=== PATIENT | male | born 1970 | race Caucasian/White ===

== ENCOUNTER 2024-11-11 15:37 | Emergency (ER) | payer SELFPAY ==
[2024-11-11] MEDS ORDERED: FLUORESCEIN SODIUM 1 MG/WRAP ONE (15:46)
[2024-11-11] MEDS ORDERED: TETRACAINE HCL 0.5% 4ML OPTH ONE (15:46)
--- NOTE | 2024-11-11 15:57 | EDPHYS ---
Physician Documentation [facility] Name: Laura Matias Age: 54 yrs Sex: Male : 1970 Arrival Date: 11/11/2024 Time: 15:37 Bed 13 Private MD: ED Physician Deangelo Spangler HPI: 11/11 15:45 This 54 yrs old Male presents to ER via Unassigned with complaints of Eye Problem. kb 15:45 Pt is a 54 year old male who presents for FB sensation to left eye. States he felt like kb he got something in his left eye yesterday morning while grooming his dog. Denies any visual deficits. Historical: - Allergies: 15:45 No Known Allergies; aa5 - PMHx: 15:45 cva; aa5 - Immunization history:: Adult Immunizations unknown. - Infectious Disease History:: Denies. - Social history:: Smoking status: Patient denies any tobacco usage or history of. ROS: 15:44 Constitutional: As per HPI kb Exam: 15:44 Constitutional: This is a well developed, well nourished patient who is awake, alert, kb and in no acute distress. Head/Face: Normocephalic, atraumatic. ENT: Moist Mucous membranes Cardiovascular: Regular rate Respiratory: Respirations even and unlabored. No increased work of breathing. Talking in full sentences Skin: Warm, dry with normal turgor. Normal color. MS/ Extremity: Pulses equal, no cyanosis. Neurovascular intact. Full, normal range of motion. Neuro: Awake and alert, GCS 15, oriented to person, place, time, and situation. 15:44 Eyes: Periorbital structures: appear normal, Pupils: equal, round, and reactive to light and accomodation, Extraocular movements: intact throughout, 15:55 Eyes: Conjunctiva: injected, in the left eye, Corneas: abrasion, is not appreciated, kb foreign body, is not appreciated, Vital Signs: 15:40 BP 163 / 92; Pulse 96; Resp 18 S; Temp 97.2(TE); Pulse Ox 99% on R/A; Weight 79.38 kg aa5 (R); Height 5 ft. 9 in. (R); Pain 8/10; 15:40 Body Mass Index 25.84 (79.38 kg, 175.26 cm) aa5 15:40 Pain Scale: Adult aa5 MDM: 15:40 Medical Screening Exam initiated kb 15:45 Differential diagnosis: Corneal abrasion of Corneal ulcer of Foreign body in Acute kb iritis of Data reviewed: vital signs, nurses notes. 15:56 Counseling: I had a detailed discussion with the patient and/or guardian regarding the kb historical points, exam findings, and any diagnostic results supporting the discharge/admit diagnosis, the need for outpatient follow up, an opthalmologist, to return to the emergency department if symptoms worsen or persist or if there are any questions or concerns that arise at home. Special discussion: I have referred the patient to see his PCP for further evaluation of high blood pressure. 11/11 15:44 Order name: Eye Tray; Complete Time: 15:49 kb 11/11 15:44 Order name: Fluoresene Opth strip; Complete Time: 15:49 kb Administered Medications: 16:06 Drug: Tetracaine Ophthalmic Drops 0.5 % 1 drops Ophthalmic once Route: Ophthalmic; kc6 Site: left eye; Disposition: 18:39 Co-signature as Attending Physician, Deangeol Spangler MD I reviewed the patient's care rn provided by the Advanced Practice Provider and agree with the diagnosis and treatment plan. Disposition Summary: 11/11/24 15:56 Discharge Ordered Notes: Location: Home kb Condition: Stable kb Diagnosis - Unspecified acute conjunctivitis, left eye kb Followup: kb - With: Emergency Department - When: As needed - Reason: Worsening of condition Followup: kb - With: Private Physician - When: 2 - 3 days - Reason: Recheck today's complaints, Continuance of care, Re-evaluation by your physician Discharge Instructions: - Discharge Summary Sheet kb - Bacterial Conjunctivitis, Adult, [id number] kb Forms: - Medication Reconciliation Form kb - Antibiotic Education kb - Prescription Opioid Use kb - Patient Portal Instructions kb - Leadership Thank You Letter kb Prescriptions: - Vigamox 0.5 % Ophthalmic Drops - instill 1 drop OPHTHALMIC route every 8 hours for 7 days; 5 milliliter; kb Refills: 0, Product Selection Permitted Signatures: Krystyna Franz FNP-C FNP-Ckb Nieto, Roman, MD MD rn Calderon, Audri RN RN aa5 Bekah Corbin RN RN kc6
--- NOTE | 2024-11-11 15:57 | ER ---
Nurse's Notes [facility] Name: Laura Matias Age: 54 yrs Sex: Male : 1970 Arrival Date: 11/11/2024 Time: 15:37 Bed 13 Private MD: Diagnosis: Unspecified acute conjunctivitis, left eye Presentation: 11/11 15:40 Chief complaint: Patient states: "I feel something in my left eye", watering and pain aa5 to left eye that began yesterday. 15:40 Coronavirus screen: At this time, the client does not indicate any symptoms associated aa5 with coronavirus-19. Ebola Screen: Patient denies travel to an Ebola-affected area in the 21 days before illness onset. Initial Sepsis Screen: Does the patient meet any 2 criteria? HR > 90 bpm. Does the patient have a suspected source of infection? No. Patient's initial sepsis screen is negative. Risk Assessment: Do you want to hurt yourself or someone else? Patient reports no desire to harm self or others. Onset of symptoms was November 2024. 15:40 Acuity: ANA 4 aa5 15:40 Method Of Arrival: Ambulatory aa5 Historical: - Allergies: 15:45 No Known Allergies; aa5 - PMHx: 15:45 cva; aa5 - Immunization history:: Adult Immunizations unknown. - Infectious Disease History:: Denies. - Social history:: Smoking status: Patient denies any tobacco usage or history of. Screenin:06 [facility] ED Fall Risk Assessment (Adult) History of falling in the last 3 months, kc6 including since admission No falls in past 3 months (0 pts) Confusion or Disorientation No (0 pts) Intoxicated or Sedated No (0 pts) Impaired Gait No (0 pts) Mobility Assist Device Used No (0 pt) Altered Elimination No (0 pt) Score/Fall Risk Level 0 - 2 = Low Risk Oriented to surroundings. Abuse screen: Denies threats or abuse. Denies injuries from another. Nutritional screening: No deficits noted. Tuberculosis screening: No symptoms or risk factors identified. Assessment: 16:08 General: Appears in no apparent distress. uncomfortable, Behavior is calm, cooperative, kc6 appropriate for age. Pain: Complains of pain in left eye. Neuro: Level of Consciousness is awake, alert, obeys commands, Oriented to person, place, time, situation, Appropriate for age. Cardiovascular: Capillary refill < 3 seconds. Respiratory: Airway is patent Trachea midline Respiratory effort is even, unlabored, Respiratory pattern is regular, symmetrical. GI: No signs and/or symptoms were reported involving the gastrointestinal system. : No signs and/or symptoms were reported regarding the genitourinary system. EENT: Sclera/Cornea are reddened in left eye Reports blurred vision in left eye pain in left eye. Derm: No signs and/or symptoms reported regarding the dermatologic system. Skin is intact, is healthy with good turgor, Skin is pink, warm \\T\\ dry. Musculoskeletal: No signs and/or symptoms reported regarding the musculoskeletal system. Circulation, motion, and sensation intact. Range of motion: intact in all extremities. Vital Signs: 15:40 BP 163 / 92; Pulse 96; Resp 18 S; Temp 97.2(TE); Pulse Ox 99% on R/A; Weight 79.38 kg aa5 (R); Height 5 ft. 9 in. (R); Pain 8/10; 15:40 Body Mass Index 25.84 (79.38 kg, 175.26 cm) aa5 15:40 Pain Scale: Adult aa5 ED Course: 15:39 Patient arrived in ED. mr 15:40 Kryst[facility]-C [facility]. kb 15:40 Deangelo Spangler MD is Attending Physician. kb 15:40 Arm band placed on Patient placed in an exam room, on a stretcher. aa5 15:41 Bekah Corbin, LILLY is Primary Nurse. [facility] 15:45 Triage completed. aa5 16:06 Patient has correct armband on for positive identification. Bed in low position. Call kc6 light in reach. Side rails up X 1. Pulse ox on. NIBP on. Door closed. Noise minimized. Lights dimmed. Pillow given. Verbal reassurance given. 16:06 Assist provider with eye exam of left eye. using fluorescein stain, Performed by aye DUNCAN Patient tolerated well. Patient did not have IV access during this emergency room visit. Patient maintains SpO2 saturation greater than 95% on room air. Administered Medications: 16:06 Drug: Tetracaine Ophthalmic Drops 0.5 % 1 drops Ophthalmic once Route: Ophthalmic; kc6 Site: left eye; Medication: 16:13 VIS not applicable for this client. kc6 Outcome: 15:56 Discharge ordered by MD. miller 16:12 Discharged to home ambulatory, kc6 16:12 Condition: good 16:12 Discharge instructions given to patient, Instructed on discharge instructions, follow up and referral plans. medication usage, Demonstrated understanding of instructions, follow-up care, medications, Prescriptions given X 1, 16:13 Patient left the ED. kc6 Signatures: Krystyna Franz, PEST TECHNICIAN-C PEST TECHNICIAN-Kymberly Hobbs, Néstor Reg mr FonsecaLilian, RN RN aa5 Bekah Corbin RN RN kc6
[2024-11-11 16:18] VITALS: BP 163/92; TEMP 97.2; O2SAT 99
== END 2024-11-11 16:13 | disposition home or self-care (01) ==
LOC: ER 15:37
DX: H10.32 Unspecified acute conjunctivitis, left eye (principal)
CPT/HCPCS: 99284